=== PATIENT | female | born 1950 | race Caucasian/White ===

== ENCOUNTER → 2018-03-09 | Outpatient (CLI) | payer OTHER ==
[2018-03-09 15:18] LABS: Source, Urine Clean Catch
[2018-03-09 17:03] LABS: Bilirubin, Urine Neg (Neg); Blood, Urine 1+ (Neg); Glucose Qualitative, Urine Neg (Neg); Ketones, Urine Neg (Neg); Leukocyte Esterase, Urine 3+ (Neg); Nitrite, Urine Pos (Neg); Protein, Urine 1+ (Neg); Urobilinogen, Urine NORM (Normal)
[2018-03-09 17:09] LABS: Appearance, Urine Cloudy (Clear); Color, Urine Yellow (P-Yellow)
[2018-03-09 17:10] LABS: Bacteria Many /hpf; Red Blood Cells, Urine 0-2 /hpf (0-2); Squamous Epithelial Cells Mod /hpf (Few); White Blood Cells, Urine 50-100 /hpf (0-5)
== END ==
LOC: LAB SHORT 15:15 → LAB 15:15
PROVIDERS: Nurse Practitioner Family
DX: R30.0 Dysuria (principal)
CPT/HCPCS: 81001; 87077; 87086; 87186

== ENCOUNTER → 2018-03-24 | Outpatient (CLI) | payer OTHER ==
[2018-03-26 15:08] LABS: HPV 16 Negative (Negative); HPV 18 Negative (Negative); HPV OTHER HR TYPES Negative (Negative)
== END | disposition home or self-care (01) ==
LOC: LAB SHORT 17:33 → LAB 17:33
PROVIDERS: Nurse Practitioner Women's Health
DX: Z12.72 Encounter for screening for malignant neoplasm of vagina (principal); Z91.89 Other specified personal risk factors, not elsewhere classified
CPT/HCPCS: 87624; G0123

== ENCOUNTER 2018-10-27 13:01 | Day surgery (SDC) | payer OTHER ==
[~2018-10-27] VITALS: Ht 162.6 cm; Wt 59.1 kg
[~2018-10-27 13:01] MED LIST: AMLO10 PO; Benicar40 MG PO; CYCL10 PO; Estrace Vagin42.5 GM VAG; LEVSOD88 PO; PRAVASTATIN SOD10 MG PO; TRAM50 PO; ZYRTEC10 M1 PO
--- NOTE | 2018-10-27 15:37 | NUR ---
10/27/18 1537 Mimi Madden ARRIVING TO SDU, PT REPORTED ABDOMINAL CRAMPING 5/10. RN EXPLAINED HOW THE CO2 USED DURIONG THE PROCEDURE COULD CAUSE THE CRAMPING. PRIOR TO D/C HOME, PT STATED PAIN HAD IMPROVED TO A 4/10 AND SHE FELT SHE DID NOT NEED ANY INTERVENTIONS. PT TEACHING WAS COMPLETED WITH PT AND PT'S FAMILY, BOTH OF WHOME DENIED ANY QUESTIONS. PT STATED SHE WAS READY TO GO HOME SO SHE WAS D/C PER PROTOCOL.
== END 2018-10-27 15:34 | disposition home or self-care (01) ==
LOC: ORSCSDS 13:01
PROVIDERS: Internal Medicine Gastroenterology
PROC: 0DBE8ZX Excision of Large Intestine, Via Natural or Artificial Opening Endoscopic, Diagnostic (ICD-10-PCS; principal; 2018-10-27 14:15)
PROC: 0DBM8ZX Excision of Descending Colon, Via Natural or Artificial Opening Endoscopic, Diagnostic (ICD-10-PCS; principal; 2018-10-27 14:15)
DX: R19.4 Change in bowel habit (principal); K57.30 Diverticulosis of large intestine without perforation or abscess without bleeding; K64.8 Other hemorrhoids; Z80.0 Family history of malignant neoplasm of digestive organs; Z86.010 Personal history of colon polyps; I10 Essential (primary) hypertension; E03.9 Hypothyroidism, unspecified; E78.5 Hyperlipidemia, unspecified
CPT/HCPCS: 87081; 88305; J2704; J7120